=== PATIENT | female | born 1945 | race Caucasian/White ===

== ENCOUNTER 2020-03-05 21:59 | Emergency (ER) | payer OTHER ==
[~2020-03-05] VITALS: Ht 175.3 cm; Wt 95.3 kg
[2020-03-05 22:21] VITALS: BP_SYST 155
--- NOTE | 2020-03-05 23:08 | NUR ---
Patient left without being seen.
== END 2020-03-05 23:08 | disposition left against medical advice (07) ==
LOC: SED 21:59
DX: R00.2 Palpitations (principal); Z53.21 Procedure and treatment not carried out due to patient leaving prior to being seen by health care provider
CPT/HCPCS: 93005